=== PATIENT | female | born 1995 | race Caucasian/White ===

== ENCOUNTER 2017-04-17 17:08 | Outpatient (CLI) | payer OTHER ==
[~2017-04-17] VITALS: Ht 157.5 cm; Wt 62.4 kg
[2017-04-17 18:16] VITALS: BP 109/60
[2017-04-17] MEDS ORDERED: TERBUTALINE 1 MG/ML, 1ML ONE (19:12)
[2017-04-17] MEDS ORDERED: TERBUTALINE 1 MG/ML, 1ML SQ ONE (19:30)
== END 2017-04-17 20:10 | disposition home or self-care (01) ==
LOC: LDOP 17:08
PROVIDERS: ATTEND Student in an Organized Health Care Education/Training Program
DX: O26.893 Other specified pregnancy related conditions, third trimester (principal); O62.9 Abnormality of forces of labor, unspecified; R10.9 Unspecified abdominal pain; M54.9 Dorsalgia, unspecified; Z3A.34 34 weeks gestation of pregnancy
CPT/HCPCS: 59025; 81003; 87086; 96372; 99201; J3105; G0463